=== PATIENT | female | born 1980 | race Caucasian/White ===

== ENCOUNTER 2018-08-09 18:42 | Emergency (ER) | payer OTHER ==
--- NOTE | 2018-08-09 19:37 | PDOC ---
Rapid Medical Evaluation Time Seen by Provider: 08/09/18 19:36 Medical Evaluation: Allergies Allergy/AdvReac Type Severity Reaction Status Date / Time No Known Allergies Allergy Verified 11/17/14 18:08 08/09/18 19:36 I have performed a brief in-person evaluation of this patient. The patient presents with a chief complaint of:L knee pain s/p fall 8 days ago Pertinent physical exam findings:ambulates without antalgia I have ordered the following:nothing The patient will proceed to the ED for further evaluation. Discharge Disposition - Diagnosis Knee pain, left - Referrals - Patient Instructions - Post Discharge Activity
[2018-08-09 19:40] VITALS: BP 129/71; PULSE 89; TEMP 98.4; BMI 29.0
[2018-08-09] MEDS ORDERED: KETOROLAC TROMETHAMINE 30 MG/1 ML VIAL IM ONE (20:09)
[2018-08-09] MEDS ORDERED: KETOROLAC TROMETHAMINE 30 MG/1 ML VIAL ONE (20:11)
--- NOTE | 2018-08-09 20:14 | PDOC ---
History of Present Illness - General Chief Complaint: Pain Stated Complaint: L KNEE PAIN Time Seen by Provider: 08/09/18 19:36 History Source: Patient Exam Limitations: No Limitations - History of Present Illness Initial Comments: 08/09/18 20:10 HISTORY OF PRESENT ILLNESS: 38-year-old woman denies medical history presents for evaluation of left knee pain status post fall on steps. Patient states she was walking down the stairs at her job carrying a bag of garbage which obscured her view. Patient states she misstepped on the last 2 or 3 steps causing her to fall onto her left leg with flexion of her knee. Reports striking her knee on the stairs on the way down. Patient has been ambulatory since the incident has been taking Tylenol and Motrin with minimal relief of symptoms. No recent travel or sick contacts. PAST MEDICAL HISTORY: Denies past medical history SURGICAL HISTORY: Denies ALLERGIES: No known drug allergies REVIEW OF SYSTEMS General/Constitutional: Denies fever or chills. Denies weakness, weight change. HEENT: Denies change in vision. Denies ear pain or discharge. Denies sore throat. Cardiovascular: Denies chest pain or shortness of breath. Respiratory: Denies cough, wheezing, or hemoptysis. Gastrointestinal: Denies nausea, vomiting, diarrhea or constipation. Denies rectal bleeding. Genitourinary: Denies dysuria, frequency, or change in urination. Musculoskeletal: Left knee pain. Denies neck or back pain. Skin and breasts: Denies rash or easy bruising. Neurologic: Denies headache, vertigo, loss of consciousness, or loss of sensation. Psychiatric: Denies depression or anxiety. Endocrine: Denies increased thirst. Denies abnormal weight change. Hematologic/Lymphatic: Denies anemia, easy bleeding, or history of blood clots. Allergic/Immunologic: Denies hives or skin allergy. Denies latex allergy. PHYSICAL EXAM General Appearance: Well-appearing, appropriately dressed. No apparent distress , no intoxication. HEENT: EOMI, PERRLA, normal ENT inspection, normal voice, TMs normal, pharynx normal. No conjunctival pallor. No photophobia, scleral icterus. Neck: Supple. Trachea midline. No tenderness, rigidity, carotid bruit, stridor , lymphadenopathy, or thyromegaly. Respiratory/Chest: Lungs CTAB. No shortness of breath, chest tenderness, respiratory distress, accessory muscle use. No crackles, rales, rhonchi, stridor , wheezing, dullness Cardiovascular: RRR. S1, S2. No JVD, murmur, bradycardia, tachycardia. Vascular Pulses: Dorsalis-Pedis (R): 2+, Dorsalis-Pedis (L): 2+ Gastrointestinal/Abdominal: Normal bowel sounds. Abdomen soft, non-distended. No tenderness or rebound tenderness. No organomegaly, pulsatile mass, guarding, hernia, hepatomegaly, splenomegaly. Lymphatic: No adenopathy, tenderness. Musculoskeletal/Extremities: Normal inspection. FROM of all extremities, normal capillary refill. Pelvis Stable. No CVA tenderness. No tenderness to extremities, pedal edema, swelling, erythema or deformity. Patella is mobile. - Lucas's test. TTP medial left knee. No bony tenderness. Integumentary: Appropriate color, dry, warm. No cyanosis, erythema, jaundice or rash Neurologic: gas truck driver II-XII intact. Fully oriented, alert. Appropriate mood/affect. Motor strength 5/5. No appreciable EOM palsy, facial droop or sensory deficit. Past History - Past Medical History Allergies/Adverse Reactions: Allergies Allergy/AdvReac Type Severity Reaction Status Date / Time No Known Allergies Allergy Verified 11/17/14 18:08 Home Medications: Ambulatory Orders NK [No Known Home Medication] 08/09/18 Asthma: No Cancer: No Cardiac Disorders: No COPD: No Diabetes: No HTN: No Seizures: No Thyroid Disease: No - Suicide/Smoking/Psychosocial Hx Smoking History: Never smoked Have you smoked in the past 12 months: No Information on smoking cessation initiated: No Hx Alcohol Use: No Drug/Substance Use Hx: No Substance Use Type: None Hx Substance Use Treatment: No *Physical Exam - Vital Signs Last Vital Signs Temp Pulse Resp BP Pulse Ox 98.4 F 89 20 129/71 100 08/09/18 19:35 08/09/18 19:35 08/09/18 19:35 08/09/18 19:35 08/09/18 19:35 Moderate Sedation - Procedure Monitoring Vital Signs: Procedure Monitoring Vital Signs Temperature 98.4 F 08/09/18 19:35 Pulse Rate 89 08/09/18 19:35 Respiratory Rate 20 08/09/18 19:35 Blood Pressure 129/71 08/09/18 19:35 O2 Sat by Pulse Oximetry (%) 100 08/09/18 19:35 ED Treatment Course - RADIOLOGY Radiology Studies Ordered: Category Date Time Status KNEE 2 POS-LEFT [RAD] Stat Radiology 08/09/18 20:09 Ordered Medical Decision Making - Medical Decision Making 08/09/18 20:12 A/P: 38-year-old woman with left knee pain for 8 days Tenderness to palpation over medial aspect of left knee Negative Lucas test 2+ DP pulses bilaterally Toradol 30 mg IM now X-rays Reassess 08/09/18 20:42 X-rays as read by me: No acute fractures or dislocations present. Soft tissue swelling present posteriorly. Hector wrap Discharge home with orthopedic follow-up I discussed the physical exam findings, ancillary test results and final diagnoses with the patient. I answered all of the patient's questions. The patient was satisfied with the care received and felt comfortable with the discharge plan and treatment plan. The patient will call their primary care physician within 24 hours to arrange follow-up and will return to the Emergency Department with any new, persistent or worsening symptoms. *DC/Admit/Observation/Transfer Diagnosis at time of Disposition: Knee pain, left Qualifiers: Chronicity: acute Qualified Code(s): M25.562 - Pain in left knee - Discharge Dispostion Disposition: HOME Condition at time of disposition: Stable Decision to Admit order: No - Referrals Referrals: Doc Harrell DO [Staff Physician] - - Patient Instructions Additional Instructions: Take Tylenol or Motrin as needed for pain. Follow manufacturers instructions for appropriate dosage. Try not to walk or bear weight on your left knee as much as possible for the next 3 days. Apply ice for 20 minutes and removed for at least 20 minutes before reapplying the ice. Keep Hector wrap on your knee as much as possible to help decrease some of the swelling control pain. Whenever possible keep your foot elevated to decrease swelling to your ankle. You've been given the number for an orthopedist. If symptoms do not resolve within the next 7 days call the orthopedist for further evaluation. Return to emergency department for discoloration of the foot, numbness or tingling to the foot, worsening pain, or any other concerns. Thank you very much for choosing us to provide your emergent healthcare needs. - Post Discharge Activity Forms/Work/School Notes: Back to Work
== END 2018-08-09 21:26 | disposition home or self-care (01) ==
LOC: JERFT 18:42
DX: M25.562 Pain in left knee (principal); W10.8XXA Fall (on) (from) other stairs and steps, initial encounter; Y93.H9 Activity, other involving exterior property and land maintenance, building and construction; Y92.69 Other specified industrial and construction area as the place of occurrence of the external cause; Y99.0 Civilian activity done for income or pay
CPT/HCPCS: 73560-TC-LT-FY; 99281-25

== ENCOUNTER 2023-01-23 10:59 | Emergency (ER) | payer OTHER ==
[2023-01-23 11:13] VITALS: BMI 32.0
[2023-01-23] MEDS ORDERED: diazePAM 2 MG TABLET PO ONE (12:41)
[2023-01-23] MEDS ORDERED: ONDANSETRON *ODT* 4 MG TABLET SL ONE (12:41)
[2023-01-23] MEDS ORDERED: MECLIZINE HCL 25 MG TABLET (FP) PO ONE (12:41)
[2023-01-23] MEDS ORDERED: METOCLOPRAMIDE HCL INJECTION 10 MG/2 ML VIAL IVPUSH ONE (12:45)
[2023-01-23] MEDS ORDERED: LACTATED RINGERS SOLUTION 1000 ML INFUS.BAG IV ONE (12:46)
[2023-01-23] MEDS ORDERED: MECLIZINE HCL 25 MG TABLET (FP) ONE (13:02)
[2023-01-23] MEDS ORDERED: METOCLOPRAMIDE HCL INJECTION 10 MG/2 ML VIAL ONE (13:03)
[2023-01-23] MEDS ORDERED: diazePAM 2 MG TABLET ONE (13:03)
[2023-01-23 14:39] LABS: BASO % 0.6 % (0-2.0); EOS % 1.5 % (0-4.5); HEMATOCRIT 39.1 % (32.4-45.2); HEMOGLOBIN 13.2 GM/dL (10.7-15.3); LYMPH % 27.7 % (8-40); MCH 26.2 pg (25.7-33.7); MCHC 33.8 g/dl (32.0-36.0); MEAN CELL VOLUME 77.4 fl (80-96); MEAN PLT VOLUME 8.3 fl (7.5-11.1); MONO % 4.9 % (3.8-10.2); NEUT % 65.3 % (42.8-82.8); PLATELET COUNT 313 10^3/uL (134-434); RBC 5.04 M/mm3 (3.60-5.2); RDW 14.9 % (11.6-15.6); WHITE BLOOD COUNT 9.7 K/mm3 (4.0-10.0)
[2023-01-23 14:44] LABS: PROTHROMBIN TIME (PATIENT) 11.6 SEC (9.7-13.0)
[2023-01-23 14:47] LABS: ACTIVATED PTT 30.9 SECONDS (25.2-36.5)
[2023-01-23 14:49] LABS: POTASSIUM 3.9 mmol/L (3.5-5.1)
[2023-01-23 14:53] LABS: CALCIUM 8.7 mg/dL (8.5-10.1)
[2023-01-23 14:54] LABS: ALBUMIN 3.5 g/dl (3.4-5.0); BLOOD UREA NITROGEN 5.4 mg/dL (7-18)
[2023-01-23 14:57] LABS: CREATININE 0.6 mg/dL (0.55-1.3)
[2023-01-23 14:58] LABS: BILIRUBIN,TOTAL 0.3 mg/dL (0.2-1)
[2023-01-23 15:02] LABS: N-TERMINAL BNP 158.4 pg/ml (5-125)
[2023-01-23 15:18] VITALS: TEMP 98.5
[2023-01-23 16:49] LABS: URINE APPEARANCE CLEAR; URINE BILIRUBIN NEGATIVE (NEGATIVE); URINE COLOR YELLOW; URINE GLUCOSE (UA) NEGATIVE (NEGATIVE); URINE KETONE NEGATIVE (NEGATIVE); URINE LEUK ESTERASE NEGATIVE (NEGATIVE); URINE NITRITE NEGATIVE (NEGATIVE); URINE PROTEIN NEGATIVE (NEGATIVE); URINE UROBILINOGEN 0.2 mg/dL (0.2-1.0)
[2023-01-23 18:08] VITALS: BP 102/43; PULSE 71; RESP 18
== END 2023-01-23 18:09 | disposition home or self-care (01) ==
LOC: JER 10:59
PROC: 3E033NZ Introduction of Analgesics, Hypnotics, Sedatives into Peripheral Vein, Percutaneous Approach (ICD-10-PCS; principal; 2023-01-23)
DX: H81.10 Benign paroxysmal vertigo, unspecified ear (principal)
CPT/HCPCS: 0241U-QW; 36415; 71045-TC-FY; 80053; 81003; 83880; 84484; 84703; 85025; 85610; 85730; 87077; 87086; 93005; 93010; 99285-25